=== PATIENT | female | born 1965 | race Caucasian/White ===

== ENCOUNTER 2019-02-19 13:03 | Emergency (ER) | payer OTHER, SELFPAY ==
[2019-02-19 13:05] VITALS: BP 139/84; PULSE 71; RESP 16; TEMP 36.9; O2SAT 100; BMI 20.7
--- NOTE | 2019-02-19 13:18 | PC.NURSE ---
sxs reported to dr dickey./
--- NOTE | 2019-02-19 13:31 | ED.NEUROSD ---
HPI - Neuro Symptoms/Deficit General Chief Complaint: Neuro Symptoms/Deficit Stated Complaint: eyes differently dialted,tingling face last night Time Seen by Provider: 02/19/19 13:13 Source: patient Mode of arrival: ambulatory Limitations: no limitations History of Present Illness HPI Narrative: Patient is a 53-year-old female who presents at the request of her family. Family states that her eyes were dilated differently. Son states that 1 I was extremely dilated last night and the other 1 was pinpoint. thought this morning that her left eye was a little droopy. She may have had some tingling on the left side of her face. She has no history of trauma. She has no focal deficits. No difficulty speaking no weakness or numbness or tingling. She denies any medical history. She states that she feels fine now and has no complaints.. On Anticoagulants: No Related Data Allergies Allergy/AdvReac Type Severity Reaction Status Date / Time No Known Drug Allergies Allergy Verified 02/19/19 13:14 Review of Systems Review of Systems GENERAL: Denies chills, fatigue, malaise, fever, sweats, travel HEENT: See HPI Denies sinus pain, ear pain, sore throat, difficulty swallowing, neck pain RESPIRATORY: Denies dyspnea, cough, wheezing, hemoptysis, sputum. CARDIOVASCULAR: Denies chest pain, palpitations, orthopnea, edema GASTROINTESTINAL: Denies nausea, vomiting, abdominal pain, diarrhea, constipation, melena. : Denies dysuria, frequency, incontinence, hematuria, urinary retention, flank pain. MUSCULOSKELETAL: Denies weakness, joint pain, or bony pain SKIN: No rash, no erythema, no pruritus NEUROLOGIC: Denies weakness, dizziness, headache, numbness, change in speech, confusion PSYCHIATRIC: No concerning psychosocial issues. 12 point review of systems is negative except for those stated above and HPI [facility] Medical History Patient denies significant medical history (Acute) Social History Smoking Status: Never smoker Social History Smoking Status: Never smoker Exam Initial Vital Signs Initial Vital Signs: Vital Signs Temperature 98.4 F 02/19/19 13:05 Pulse Rate 71 02/19/19 13:05 Respiratory Rate 16 02/19/19 13:05 Blood Pressure 139/84 02/19/19 13:05 Pulse Oximetry 100 02/19/19 13:05 GENERAL: Well-appearing, well-nourished and in no acute distress. HEENT: Head atraumatic,EOMI, pupils reactive, SUZETTE, face symmetric, moist mucous membranes CARDIOVASCULAR: Regular rate and rhythm without murmurs, rubs or gallops. RESPIRATORY: Breath sounds equal bilaterally, no wheezes rales or rhonchi. ABDOMEN: Soft, nontender. Normoactive bowel sounds all 4 quadrants. No guarding or rebound. : No CVA tenderness EXTREMITIES: Normal range of motion, no clubbing or edema. Neurovascularly intact NEUROLOGICAL: Alert and oriented x4.Normal gait and speech. Cranial nerves II through XII grossly intact. Good [id number], good [id number], strength equal bilaterally, no dysarthria or aphasia, sensation in tact to soft touch bilaterally, no visual changes, no facial droop SKIN: Warm, dry, no laceration, no petechiae, no rashes or lesions. Scores NIH Stroke Scale Level of Conciousness: Alert, keenly responsive Ask month/age: Answers both questions correctly. Open/close eyes, close hand: Performs both tasks correctly Best gaze horizontal: Normal Visual donald: No visual loss Facial palsy: Normal symetrical movement Left arm drift: No drift for full 10 sec Right arm drift: No drift for full 10 sec Left leg drift: No drift for full 10 sec Right leg drift: No drift for full 10 sec Limb ataxia: Absent Sensory on face/arms/legs: Normal, no sensory loss Best language: No aphasia, normal Dysarthria: Normal Extinction or inattention: No abnormality Total NIH Stroke scale score: 0 Course Vital Signs - 8 hr 02/19/19 13:05 02/19/19 13:36 Temperature 98.4 F Pulse Rate 71 Respiratory Rate 16 Blood Pressure 139/84 Blood Pressure [Left Arm] 146/82 H Pulse Oximetry 100 MDM - Neuro Symptoms/Deficit Lab Data Point of Care Testing Glucose POC 86 Discharge Plan Departure Patient Disposition: Home Clinical Impression: Feared complaint without diagnosis Discharge Date/Time: 02/19/19 13:45 Interventions: ED Discharge Assessment Last Done: 02/19/19 13:44 Instructions: DI for Stroke-Ischemic, DI for Stroke-Intracerebral Hemorrhage Activity Restrictions/Additional Instructions: *You have been diagnosed with no diagnosis *What to do: At this time no signs or symptoms consistent stroke. *Continue to take medications as directed *Follow up with your primary care provider in 2-3 days *Return to ER if you should have weakness facial drooping blurry vision blackening of vision difficulty with speech or any new, worsening or concerning symptoms
[2019-02-19 13:36] VITALS: BP 146/82
--- NOTE | 2019-02-19 13:36 | ED_ITS ---
HPI - Neuro Symptoms/Deficit General Chief Complaint: Neuro Symptoms/Deficit Stated Complaint: eyes differently dialted,tingling face last night Time Seen by Provider: 02/19/19 13:13 Source: patient Mode of arrival: ambulatory Limitations: no limitations History of Present Illness HPI Narrative: Patient is a 53-year-old female who presents at the request of her family. Family states that her eyes were dilated differently. Son states that 1 I was extremely dilated last night and the other 1 was pinpoint. thought this morning that her left eye was a little droopy. She may have had some tingling on the left side of her face. She has no history of trauma. She has no focal deficits. No difficulty speaking no weakness or numbness or tingling. She denies any medical history. She states that she feels fine now and has no complaints.. On Anticoagulants: No Related Data Allergies Allergy/AdvReac Type Severity Reaction Status Date / Time No Known Drug Allergies Allergy Verified 02/19/19 13:14 Review of Systems Review of Systems GENERAL: Denies chills, fatigue, malaise, fever, sweats, travel HEENT: See HPI Denies sinus pain, ear pain, sore throat, difficulty swallowing, neck pain RESPIRATORY: Denies dyspnea, cough, wheezing, hemoptysis, sputum. CARDIOVASCULAR: Denies chest pain, palpitations, orthopnea, edema GASTROINTESTINAL: Denies nausea, vomiting, abdominal pain, diarrhea, constipation, melena. : Denies dysuria, frequency, incontinence, hematuria, urinary retention, flank pain. MUSCULOSKELETAL: Denies weakness, joint pain, or bony pain SKIN: No rash, no erythema, no pruritus NEUROLOGIC: Denies weakness, dizziness, headache, numbness, change in speech, confusion PSYCHIATRIC: No concerning psychosocial issues. 12 point review of systems is negative except for those stated above and HPI [facility] Medical History Patient denies significant medical history (Acute) Social History Smoking Status: Never smoker Social History Smoking Status: Never smoker Exam Initial Vital Signs Initial Vital Signs: Vital Signs Temperature 98.4 F 02/19/19 13:05 Pulse Rate 71 02/19/19 13:05 Respiratory Rate 16 02/19/19 13:05 Blood Pressure 139/84 02/19/19 13:05 Pulse Oximetry 100 02/19/19 13:05 GENERAL: Well-appearing, well-nourished and in no acute distress. HEENT: Head atraumatic,EOMI, pupils reactive, SUZETTE, face symmetric, moist mucous membranes CARDIOVASCULAR: Regular rate and rhythm without murmurs, rubs or gallops. RESPIRATORY: Breath sounds equal bilaterally, no wheezes rales or rhonchi. ABDOMEN: Soft, nontender. Normoactive bowel sounds all 4 quadrants. No gua rding or rebound. : No CVA tenderness EXTREMITIES: Normal range of motion, no clubbing or edema. Neurovascularly intact NEUROLOGICAL: Alert and oriented x4.Normal gait and speech. Cranial nerves II through XII grossly intact. Good [id number], good [id number], strength equal bilaterally, no dysarthria or aphasia, sensation in tact to soft touch bilaterally, no visual changes, no facial droop SKIN: Warm, dry, no laceration, no petechiae, no rashes or lesions. Scores NIH Stroke Scale Level of Conciousness: Alert, keenly responsive Ask month/age: Answers both questions correctly. Open/close eyes, close hand: Performs both tasks correctly Best gaze horizontal: Normal Visual donald: No visual loss Facial palsy: Normal symetrical movement Left arm drift: No drift for full 10 sec Right arm drift: No drift for full 10 sec Left leg drift: No drift for full 10 sec Right leg drift: No drift for full 10 sec Limb ataxia: Absent Sensory on face/arms/legs: Normal, no sensory loss Best language: No aphasia, normal Dysarthria: Normal Extinction or inattention: No abnormality Total NIH Stroke scale score: 0 Course Vital Signs - 8 hr 02/19/19 13:05 02/19/19 13:36 Temperature 98.4 F Pulse Rate 71 Respiratory Rate 16 Blood Pressure 139/84 Blood Pressure [Left Arm] 146/82 H Pulse Oximetry 100 MDM - Neuro Symptoms/Deficit Lab Data Point of Care Testing Glucose POC 86 Discharge Plan Departure Patient Disposition: Home Clinical Impression: Feared complaint without diagnosis Discharge Date/Time: 02/19/19 13:45 Interventions: ED Discharge Assessment Last Done: 02/19/19 13:44 Instructions: DI for Stroke-Ischemic, DI for Stroke-Intracerebral Hemorrhage Activity Restrictions/Additional Instructions: *You have been diagnosed with no diagnosis *What to do: At this time no signs or symptoms consistent stroke. *Continue to take medications as directed *Follow up with your primary care provider in 2-3 days *Return to ER if you should have weakness facial drooping blurry vision blackening of vision difficulty with speech or any new, worsening or concerning symptoms
== END 2019-02-19 13:45 | disposition home or self-care (01) ==
PROVIDERS: Emergency Provider Emergency Medicine
DX: R20.2 Paresthesia of skin (principal); Z71.1 Person with feared health complaint in whom no diagnosis is made
CPT/HCPCS: 82962; 99282

== ENCOUNTER → 2022-09-07 09:13 | Outpatient (CLI) | payer OTHER, SELFPAY ==
--- NOTE | 2022-09-07 | DI.MG.S_ITS ---
BILATERAL DIGITAL SCREENING MAMMOGRAM 3D/2D WITH CAD: 09/07/2022 CLINICAL: Routine screening. Personal history of right breast cancer. Comparison is made to exams dated: 08/24/2021 mammogram, 03/14/2020 mammogram, and 07/16/2018 mammogram - Outside facility. Both breasts are heterogeneously dense, which may obscure small masses (category c / 51-75% glandular tissue). Current study was also evaluated with a Computer Aided Detection (CAD) system. There are benign post operative findings in the right breast. No significant masses, calcifications, or other findings are seen in either breast. There has been no significant interval change. IMPRESSION: BENIGN There is no mammographic evidence of malignancy. A 1 year screening mammogram is recommended. This exam was interpreted at Station ID: [id number]. NOTE: For mammograms, a report in lay terms will be sent to the patient. Approximately 15% of breast malignancies will not be visualized mammographically. In the management of a palpable breast mass, a negative mammogram must not discourage biopsy of a clinically suspicious lesion. Electronically Signed By: Eleazar barger/haja:09/07/2022 10:40:37 letter sent: Normal Exam ACR BI-RADS Category 2: Benign Finding(s) 3342F
== END ==
PROVIDERS: PCP Family Medicine; Referring Provider Radiology Therapeutic Radiology; Visit Provider Radiology Therapeutic Radiology
DX: Z12.31 Encounter for screening mammogram for malignant neoplasm of breast (principal); Z85.3 Personal history of malignant neoplasm of breast
CPT/HCPCS: 77063; 77067

== ENCOUNTER 2023-08-19 15:14 | Emergency (ER) | payer OTHER, SELFPAY ==
[2023-08-19 15:28] VITALS: BP 122/71; PULSE 67; RESP 18; TEMP 36.6; O2SAT 96; BMI 23.4
--- NOTE | 2023-08-19 15:32 | DI.RAD.S_ITS ---
PROCEDURE: XR HAND RT MIN 3V INDICATIONS: puncture with scissors TECHNIQUE: 3 views of the hand(s) acquired. COMPARISON: None. FINDINGS: Bones: No fractures or dislocations. Carpal bones are normally aligned. No suspicious bony lesions. Age-appropriate bony degenerative changes are seen. Soft tissues: No suspicious soft tissue calcifications. No radiopaque foreign bodies are seen. IMPRESSION: No acute bony abnormality. No radiopaque foreign bodies are seen. Dictated by: Pankaj Rajan M.D. on 08/19/2023 at 14:44 Approved by: Pankaj Rajan M.D. on 08/19/2023 at 14:45
[2023-08-19 16:54] VITALS: BP 112/65; PULSE 67; RESP 18
--- NOTE | 2023-08-19 17:55 | PC.NURSE ---
Pt states unsure of last tetanus shot. Bleeding controlled. Wound is washed with warm, soapy antibacterial soap in the ER.
[2023-08-19 17:57] VITALS: BP 113/62; PULSE 76; RESP 18; O2SAT 98
[2023-08-19] MEDS: TET,DIPH,PERTUSS(ACELL),VAC/PF 0.5 ML SYRINGE IM (18:40)
--- NOTE | 2023-08-19 18:51 | PC.NURSE ---
Wound was washed with soapy water before provider administered sutures. Pt tolerated well.
--- NOTE | 2023-08-20 11:30 | ED_ITS ---
HPI - Wound/Laceration <Berkley Velasquez PA-C - Last Filed: 08/20/23 12:42> General Chief Complaint: Wound/Laceration Stated Complaint: punture wound rt hand Time Seen by Provider: 08/19/23 17:25 Source: patient Mode of arrival: Ambulatory History of Present Illness HPI narrative: 57-year-old female presents to the ED status post a hand injury sustained just prior to arrival. Patient was working in the [employer] today, when she accidentally injured her right palm on a pair of open garden sarah. Patient denies numbness, tingling, weakness. Patient endorses full range of motion. Patient endorses pain at the site of the wound. Bleeding was controlled with pressure. Related Data Allergies Allergy/AdvReac Type Severity Reaction Status Date / Time No Known Drug Allergies Allergy Verified 08/19/23 15:28 Review of Systems <Berkley Velasquez PA-C - Last Filed: 08/20/23 12:42> Constitutional Constitutional: Denies chills, Denies fatigue, Denies fever(s), Denies frequent falls, Denies lethargy and Denies weakness Eyes Eyes: Denies change in vision, Denies eye discharge, Denies irritation and Denies loss of vision ENT Ears, Nose, Mouth, and Throat: Denies change in voice, Denies dizziness, Denies neck pain, Denies sore throat and Denies throat swelling Cardiovascular Cardiovascular: Denies chest pain, Denies irregular heart rhythm, Denies lightheadedness, Denies palpitations, Denies dyspnea, Denies dyspnea on exertion and Denies orthopnea Respiratory Respiratory: Denies cough, Denies dyspnea, Denies dyspnea on exertion and Denies wheezing Gastrointestinal Gastrointestinal: Denies abdominal pain, Denies change in bowel habits, Denies diarrhea, Denies nausea and Denies vomiting Musculoskeletal Musculoskeletal: Denies neck pain and Denies numbness Integumentary/Breasts Skin/Breast: Denies pruritus, Denies erythema, Denies rash and Reports wounds Neurologic Neurologic: Denies behavioral changes, Denies confusion, Denies dizziness, Denies frequent falls, Denies loss of vision, Denies numbness and Denies weakness Psychiatric Psychiatric: Denies anxiety, Denies behavioral changes, Denies confusion, Denies depression, Denies homicidal ideation and Denies suicidal ideation Endocrine Endocrine: Denies fatigue, Denies flushing and Denies palpitations Hematologic/Lymphatic Hematologic/Lymphatic: Denies easy bruising Allergic/Immunologic Allergic/Immunologic: Denies urticaria, Denies throat swelling and Denies wheezing Patient History <Berkley Velasquez PA-C - Last Filed: 08/20/23 12:42> Medical History Patient denies significant medical history Social History Smoking Status: Never smoker Smoking Status: Never smoker Substance Use Type: does not use Exam <Berkley Velasquez PA-C - Last Filed: 08/20/23 12:42> Narrative Exam Narrative: Const General:?cooperative, healthy appearing and comfortable HENMT Head:?normal to inspection Ears:?hearing grossly normal bilaterally Nose:?external nose normal Face and sinus:?normal facial exam and sinuses nontender Mouth:?oral mucosae normal Throat:?posterior oropharynx normal Eyes General:?appearance normal, both eyes and all related structures Neck Neck:?normal visual inspection and no lymphadenopathy noted Resp Effort & Inspection:?normal respiratory effort Auscultation:?clear to auscultation bilaterally Cardio Rate:?regular rate Rhythm:?regular rhythm Integumentary There is a small 1 cm linear laceration to the base of the right hypothenar eminence. Bleeding is controlled with pressure. No deeper structures visualized on exam. Strength and sensation is intact. There is full range of motion. Patient is neurovascularly intact. Neuro General:?patient alert, patient awake and patient oriented x3 Initial Vital Signs Initial Vital Signs: Vital Signs Temperature 97.9 F 08/19/23 15:28 Pulse Rate 67 08/19/23 15:28 Respiratory Rate 18 08/19/23 15:28 Blood Pressure 122/71 08/19/23 15:28 Pulse Oximetry 96 08/19/23 15:28 Oxygen Delivery Method Room Air 08/19/23 15:28 <Radha Dias DO - Last Filed: 08/20/23 13:31> Initial Vital Signs Initial Vital Signs: Vital Signs Temperature 97.9 F 08/19/23 15:28 Pulse Rate 67 08/19/23 15:28 Respiratory Rate 18 08/19/23 15:28 Blood Pressure 122/71 08/19/23 15:28 Pulse Oximetry 96 08/19/23 15:28 Oxygen Delivery Method Room Air 08/19/23 15:28 Procedures <MAGALI Rivers Last Filed: 08/20/23 12:42> Laceration Repair Laceration 1: Site: hand Side (If applicable): right Size (cm): 1 Description: linear Depth: simple, single layer Local Anesthetic: lidocaine 1% Amount of anesthesia used (mL): 1 Pre-repair: wound explored, irrigated extensively and deep structures intact Skin layer closed with: nylon Skin layer suture size: 5-0 Number of sutures: 2 Technique: simple, interrupted Course <MAGALI Rivers Last Filed: 08/20/23 12:42> Orders Ordered: Discontinued Medications Diphtheria/Tetanus/Acell Pertussis (Tet,Diph,Pertuss(Acell),Vac/Pf 0.5 Ml Syringe) 0.5 ml IM .ONCE ONE Stop: 08/19/23 18:37 Last Admin: 08/19/23 18:40 Dose: 0.5 ml Documented By: SPF Tetanus/Diphtheria Toxoids (Tetanus Diphtheria Toxoids 0.5 Ml Vial) 0.5 ml IM .ONCE ONE Stop: 08/19/23 18:33 <Radha Dias DO - Last Filed: 08/20/23 13:31> Orders Ordered: Discontinued Medications Diphtheria/Tetanus/Acell Pertussis (Tet,Diph,Pertuss(Acell),Vac/Pf 0.5 Ml Syringe) 0.5 ml IM .ONCE ONE Stop: 08/19/23 18:37 Last Admin: 08/19/23 18:40 Dose: 0.5 ml Documented By: SPF Tetanus/Diphtheria Toxoids (Tetanus Diphtheria Toxoids 0.5 Ml Vial) 0.5 ml IM .ONCE ONE Stop: 08/19/23 18:33 MDM - Wound/Laceration <MAGALI Rivers Last Filed: 08/20/23 12:42> MDM Narrative Medical decision making narrative: 57-year-old female presents to the ED status post a hand injury sustained just prior to arrival. Will obtain x-ray to rule out foreign object, frac ture/dislocation. X-ray without acute findings. Patient is neurovascularly intact. Laceration was repaired with 2 sutures. Sutures will need to be removed in 7-10 days. Signs of infection and wound care discussed with patient. ED return precautions discussed with patient. Patient verbalized understanding. Medical records reviewed: Yes Discharge Plan Departure Patient Disposition: Home Clinical Impression: Laceration Instructions: DI for Laceration Repair Activity Restrictions/Additional Instructions: You were evaluated in the ED today for a hand injury. The x-ray was normal. Your laceration was sutured with 2 sutures. The sutures will need to be removed in 7-10 days. You may see your PCP for suture removal or return to the ED. please watch for signs of infection including worsening redness, pain, swelling, warmth, discharge. Return to the ED if you note any signs of infection. You may take Tylenol or ibuprofen for pain. Referrals: Emani Rueda DO [Primary Care Provider] - Stand Alone Forms: Patient Portal/API ED Sign-out <Radha Dias DO - Last Filed: 08/20/23 13:31> Cosign ED Attending Lauren Attestation: I was available for consultation.
== END 2023-08-19 18:52 | disposition home or self-care (01) ==
PROVIDERS: Emergency Provider Student in an Organized Health Care Education/Training Program; PCP Family Medicine
DX: S61.411A Laceration without foreign body of right hand, initial encounter (principal); W27.1XXA Contact with garden tool, initial encounter; Z23 Encounter for immunization
CPT/HCPCS: 12001; 73130; 90471; 99283; 90715

== ENCOUNTER → 2023-09-09 08:08 | Outpatient (CLI) | payer OTHER, SELFPAY ==
--- NOTE | 2023-09-09 08:09 | DI.MG.S_ITS ---
BILATERAL DIGITAL SCREENING MAMMOGRAM 3D/2D WITH CAD: 09/09/2023 CLINICAL: Routine screening. Breast cancer. Comparison is made to exams dated: 09/07/2022 mammogram - [facility], 08/24/2021 mammogram, and 03/14/2020 mammogram - Outside facility. Both breasts are heterogeneously dense, which may obscure small masses (category c / 51-75% glandular tissue). Current study was also evaluated with a Computer Aided Detection (CAD) system. The right breast has post-operative findings. There are linear fine heterogeneous calcifications in the right breast at 1 o'clock posterior depth. No other significant masses, calcifications, or other findings are seen in either breast. IMPRESSION: INCOMPLETE: NEEDS ADDITIONAL IMAGING EVALUATION The linear fine heterogeneous calcifications in the right breast are indeterminate. Diagnostic mammogram for additional views to include mediolateral and spot magnification views is recommended. This exam was interpreted at Station ID: [id number]. NOTE: For mammograms, a report in lay terms will be sent to the patient. Approximately 15% of breast malignancies will not be visualized mammographically. In the management of a palpable breast mass, a negative mammogram must not discourage biopsy of a clinically suspicious lesion. Electronically Signed By: Isaac Collins M.D. aty/:09/09/2023 18:43:26 letter sent: Additional Imaging Needed ACR BI-RADS Category 0: Incomplete 3340F
== END ==
LOC: MAMMO 08:08
PROVIDERS: PCP Family Medicine; Referring Provider Family Medicine; Visit Provider Family Medicine
DX: Z12.31 Encounter for screening mammogram for malignant neoplasm of breast (principal); Z85.3 Personal history of malignant neoplasm of breast; R92.333 Mammographic heterogeneous density, bilateral breasts
CPT/HCPCS: 77063; 77067

== ENCOUNTER → 2023-10-14 10:01 | Outpatient (CLI) | payer OTHER, SELFPAY ==
--- NOTE | 2023-10-14 | DI.MG.S_ITS ---
UNILATERAL RIGHT DIGITAL DIAGNOSTIC MAMMOGRAM 3D/2D WITH ADDITIONAL VIEWS: 10/14/2023 CLINICAL: Additional evaluation requested from prior study. Comparison is made to exams dated: 09/09/2023 mammogram, 09/07/2022 mammogram - [facility], and 08/24/2021 mammogram - Outside facility. The right breast is heterogeneously dense, which may obscure small masses (category c / 51-75% glandular tissue). The right breast has post-operative findings. There are 0.9 cm x 0.6 cm linear fine and heterogeneous calcifications in the right breast at 1 o'clock posterior depth. These are increased in number of calcifications. No other significant masses or calcifications are seen in the breast. IMPRESSION: SUSPICIOUS OF MALIGNANCY The linear fine and heterogeneous calcifications in the right breast are at a moderate suspicion for malignancy. A stereotactic biopsy is recommended. Exam findings were discussed with the patient. This exam was interpreted at Station ID: [id number]. NOTE: For mammograms, a report in lay terms will be sent to the patient. Approximately 15% of breast malignancies will not be visualized mammographically. In the management of a palpable breast mass, a negative mammogram must not discourage biopsy of a clinically suspicious lesion. Electronically Signed By: Blas Magaña M.D. slc/:10/14/2023 11:13:29 letter sent: Biopsy Required ACR BI-RADS Category 4b: Suspicious abnormality - intermediate suspicion of malignancy 3344F
== END ==
LOC: MAMMO 10:01
PROVIDERS: PCP Family Medicine; Referring Provider Family Medicine; Visit Provider Family Medicine
DX: R92.8 Other abnormal and inconclusive findings on diagnostic imaging of breast (principal); R92.333 Mammographic heterogeneous density, bilateral breasts
CPT/HCPCS: 77065; G0279

== ENCOUNTER → 2023-11-05 12:36 | Outpatient (CLI) | payer OTHER, SELFPAY ==
--- NOTE | 2023-11-05 | DI.MRI.S_ITS ---
BREAST MRI OF BOTH BREASTS- POST LUMPECTOMY: 11/05/2023 CLINICAL: Right breast Cancer. Comparison is made to exams dated: 10/23/2023 stereotactic biopsy - [facility], 10/14/2023 mammogram, 09/09/2023 mammogram, and 09/07/2022 mammogram - [facility]. 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 Precontrast axial STIR and 3D FLASH without fat saturation sequences were obtained. Both before and after bolus injection of contrast, sequential 1-minute axial 3D FLASH with fat saturation sequences for 3 time points, with subtraction images and maximum intensity projections (MIP's) generated. Delayed sagittal FLASH images with fat saturation were also obtained. Computer-aided detection, including computer algorithm analysis of MRI image data for lesion detection and characterization, pharmacokinetic analysis, with further physician review for interpretation, was performed. FINDINGS: Image quality: Excellent. There is minimal background parenchymal enhancement. Heterogeneous fibroglandular elements are seen in both breasts. Right breast: Peripherally enhancing biopsy cavity is seen in the right breast 1 o'clock position posterior depth. The cavity and surrounding edema and enhancement measure approximately 2.2 x 1.8 x 4.8 cm (66/7 and 69/18). Enhancement may represent post-biopsy edema and/or malignant involvement. The cavity is elongated in the craniocaudal dimension related to the biopsy approach. Kinetic curve assement demonstrates rapid early enhancement and progressive delayed enhancement. No solid mass-like enhancement is seen. Benign postsurgical changes are seen at the upper outer quadrant of the right breast posterior depth. No additional suspicious mass or abnormal non-mass enhancement in the right breast. No significant axillary or internal mammary lymphadenopathy. Left breast: No suspicious mass or abnormal non-mass enhancement. No significant axillary or internal mammary lymphadenopathy. Miscellaneous: Included portions of the anterior chest and upper abdomen demonstrate no significant abnormality. IMPRESSION: KNOWN BIOPSY PROVEN MALIGNANCY Post-biopsy changes are seen in the right breast 1 o'clock position corresponding to the recent biopsy with pathologic results demonstrating ductal carcinoma in situ. Edema and enhancement are seen surrounding the biopsy cavity without solid masslike enhancement. No other suspicious enhancement in the right breast. No significant axillary or internal mammary lymphadenopathy. BIRADS 6: Known biopsy proven malignancy. This exam was interpreted at Station ID: [id number]. Electronically Signed By: Eleazar Figueroa M.D. ar/:11/06/2023 09:34:05 ACR BI-RADS Category 6: Known biopsy proven malignancy [id number]
== END ==
PROVIDERS: PCP Family Medicine; Referring Provider Family Medicine; Visit Provider Family Medicine
DX: D05.11 Intraductal carcinoma in situ of right breast (principal); R92.323 Mammographic fibroglandular density, bilateral breasts
CPT/HCPCS: 77049; A9579

== ENCOUNTER 2025-06-20 08:03 | Emergency (ER) | payer OTHER, SELFPAY ==
[2025-06-20 08:09] VITALS: BP 145/73; PULSE 73; O2SAT 98
[2025-06-20 08:10] VITALS: BP 145/73; PULSE 73; RESP 16; TEMP 36.6; O2SAT 99; BMI 24.5
--- NOTE | 2025-06-20 08:22 | ED_ITS ---
HPI - Abdominal Pain General Chief Complaint: Abdominal Pain Stated Complaint: Stomach pain/faint and clammy/blood in urine Time Seen by Provider: 06/20/25 08:10 History of Present Illness HPI narrative: Patient is a healthy 59-year-old female presenting today with left lower quadrant pain. Reports she does not typically have any problems met this morning woke up with a dull ache. She is passing gas without any problem. She has also noticed that her urine is dark as well. She denies any painful frequency. She has no back pain no nausea no vomiting no fever. Related Data Allergies Allergy/AdvReac Type Severity Reaction Status Date / Time No Known Drug Allergies Allergy Verified 06/20/25 08:20 Patient History Medical History (Updated 06/20/25 @ 09:57 by Radha Dias DO) Patient denies significant medical history Social History Smoking Status: Never smoker Exam Initial Vital Signs Initial Vital Signs: Vital Signs Pulse Rate 73 06/20/25 08:09 Blood Pressure 145/73 H 06/20/25 08:09 Pulse Oximetry 98 06/20/25 08:09 GENERAL: Alert very well-appearing 59-year-old female and in no acute distress. HEENT: Head atraumatic,EOMI, pupils reactive, face symmetric, moist mucous membranes CARDIOVASCULAR: Regular rate and rhythm without murmurs, rubs or gallops. RESPIRATORY: Breath sounds equal bilaterally, no wheezes rales or rhonchi. ABDOMEN: Soft minimal left lower quadrant pain no guarding no rebound no peritoneal signs : No CVA tenderness EXTREMITIES: Normal range of motion, no clubbing or edema. Neurovascularly intact NEUROLOGICAL: Alert and oriented x4.Normal gait and speech. Cranial nerves II through XII grossly intact. SKIN: Warm, dry, no laceration, no petechiae, no rashes or lesions. Course Orders Ordered: Discontinued Medications Sodium Chloride (Normal Saline 0.9%) 1,000 mls @ 1,000 mls/hr IV BOLUS ONE Stop: 06/20/25 10:02 Last Admin: 06/20/25 09:08 Dose: 1,000 mls/hr Documented By: ANJUM Vital Signs Vital signs: Vital Signs - 8 hr 06/20/25 08:09 06/20/25 08:09 06/20/25 08:10 Temperature 97.9 F Pulse Rate 73 73 Respiratory Rate 16 Blood Pressure 145/73 H 145/73 H Pulse Oximetry 98 99 Oxygen Delivery Method Room Air 06/20/25 09:00 06/20/25 09:14 06/20/25 09:14 Temperature Pulse Rate 81 64 Respiratory Rate Blood Pressure 131/78 Pulse Oximetry 98 Oxygen Delivery Method 06/20/25 09:30 06/20/25 09:34 06/20/25 09:34 Temperature Pulse Rate 57 L 67 Respiratory Rate Blood Pressure 123/64 Pulse Oximetry 98 97 Oxygen Delivery Method MDM - Abdominal Pain Lab Data 06/20/25 08:44 06/20/25 08:44 Labs: Lab Results 06/20/25 06/20/25 Range/Units 08:16 08:44 WBC 4.0 L (4.5-11.0) X10^3/uL RBC 4.11 (4.0-5.2) X10^6/uL Hgb 12.8 (12.0-16.0) g/dL Hct 37.8 (36-46) % MCV 92.1 (80-100) fL MCH 31.1 (26-34) PG MCHC 33.7 (30-36) % RDW 13.1 (11.6-14.8) % Plt Count 233 (150-400) X10^3/uL Neut % (Auto) 69.3 (50-75) % Lymph % (Auto) 19.9 L (25-40) % [place] % (Auto) 8.0 (3-14) % Eos % (Auto) 1.9 L (2-4) % Baso % (Auto) 0.9 (0-2) % Neut # (Auto) 2700 (6330-1595) /uL Lymph # (Auto) 800 L (1043-3606) /uL [place] # (Auto) 300 (0-900) /uL Eos # (Auto) 100 (0-450) /uL Baso # (Auto) 0 (0-100) /uL Sodium 137 (137-145) mmol/L Potassium 3.8 (3.4-5.1) mmol/L Chloride 104 (98-107) mmol/L Carbon Dioxide 24 (22-32) mmol/L BUN 21 H (7-17) mg/dL Creatinine 0.50 L (0.52-1.04) mg/dL Estimated GFR > 60 (>60) mL/min BUN/Creatinine Ratio 42.0 H (6-22) Glucose 94 (70-99) mg/dL Calcium 8.7 (8.4-10.2) mg/dL Total Bilirubin 0.5 (0.2-1.3) mg/dL AST 25 (14-36) IU/L ALT 16 (<35) IU/L Alkaline Phosphatase 72 (38-126) U/L Total Protein 7.6 (6.3-8.2) g/dL Albumin 4.6 (3.5-5.0) g/dL Globulin 3.0 (1.7-4.1) g/dL Albumin/Globulin Ratio 1.5 (1.0-2.8) Lipase 117 (23-300) U/L Ur Bilirubin Confirm Negative (Negative) Urine RBC 10-30/hpf H (0-5/HPF) Urine WBC 1-5/hpf (0-5/HPF) Ur Squamous Epith Cells 0-1 /hpf (0-5/HPF) Urine Bacteria Occasional (0-1) (None) Urine Yeast 5-10/hpf H (None) Ur Culture Indicated? Specimen cultured Vol Urine Centrifuged 10ml (spun) Ur Chlamydia DNA (PCR) Not detected N gonorrhoeae DNA (PCR) Not detected Point of care testing: Urine Dip Bedside Urine Glucose Negative Bedside Urine Bilirubin + 1 Bedside Urine Ketone - Negative Urine Specific [place] 1.030 Bedside Urine Occult Blood +++ Bedside Urine pH 5.5 Bedside Urine Protein + 30 Bedside Urine Urobilinogen - Negative Bedside Urine Nitrite - Negative Bedside Urine Leukocytes + [address] scan - abdomen/pelvis: Radiologist's Impression: PROCEDURE: CT ABDOMEN PELVIS W CON INDICATIONS: llq pain TECHNIQUE: After the administration of intravenous contrast, axial sections acquired from the lung bases to the pubic symphysis. Coronal and sagittal reformats were performed. For radiation dose reduction, the following was used: automated exposure control, adjustment of mA and/or kV according to patient size. COMPARISON: None. FINDINGS: Image quality: Diagnostic. Lower Chest: No significant findings. ABDOMEN: Liver: No solid mass. Gallbladder: No radiopaque gallstones or wall thickening. Biliary ducts: No biliary dilation. Pancreas: No ductal dilation. Spleen: Size is within normal limits. Adrenal Glands: No adrenal nodules. Kidneys and Ureters: No hydronephrosis. No solid mass. No complex renal cystic lesion which requires follow up. Bilateral renal cysts less than 1.5 cm. Nonobstructing subcentimeter left renal calculus. Stomach and Bowel: Normal colonic caliber, without significant wall thickening. Moderate fecal debris throughout the colon. Peritoneum: No abnormal intraperitoneal fluid. No free air. Ventral Wall: No significant ventral hernia. Abdominal Nodes: No retroperitoneal or mesenteric adenopathy by size criteria. Vessels: Aorta and inferior vena cava are normal in size. PELVIS: Pelvic Organs: Para uterine venous vasculature measures up to 6 mm diameter. Bladder: No bladder wall thickening, accounting for underdistention. Pelvic Nodes: No enlarged lymph nodes. Miscellaneous: No inguinal hernias are seen. Bones: Degenerative disc disease and arthropathy noted in lower lumbar spine. IMPRESSION: No acute CT findings in the abdomen and pelvis. Nonobstructive left renal calculus. No hydronephrosis. Incidental prominent para uterine venous vasculature could reflect pelvic congestion syndrome in the proper clinical setting Approved by: López Bella M.D. on 06/20/2025 at 8:30 MDM Narrative Medical decision making narrative: Patient healthy 59-year-old female presenting today with some mild left lower quadrant pain. Abdomen is soft no peritoneal signs. Blood work has been reviewed she has no leukocytosis no anemia no electrolyte abnormality no PRETTY bilirubin liver enzymes and lipase all within normal limits. Urinalysis does have RBCs yeast and bacteria Imaging has been reviewed possible pelvic congestion syndrome however no other acute findings Discussion with patient about test results. She reports that about 2 weeks ago she had vaginal swabs done by her primary care initially there was thought that she had a yeast infection. She reports that she took 1 dose of anti fungal medication and was told to wait 1 week before she took the other. However they called her with the results saying that she did not have a yeast infection so she never took the other dose. She does have some blood in her urine but she denies any vaginal pruritus or discharge. He denies any dysuria at this time as well. She has no evidence of severe infection no leukocytosis no evidence of sepsis. At this time we will hold off and wait for urine culture Discharge Plan Departure Patient Disposition: Home Clinical Impression: Hematuria Instructions: DI for Hematuria Activity Restrictions/Additional Instructions: *You have been diagnosed with hematuria *What to do: At this time we will hold off for antibiotics wait until your urine culture comes back. We should have a culture results for your urine in about 2-3 days. We will call you if it is positive *Continue to take medications as directed Okay to take use medication from provider *Follow up with your primary care provider in 2-3 days or call [phone] *Return to ER if you should have increasing pain nausea vomiting fever [or] any new, worsening or concerning symptoms Referrals: Emani Rueda, DO [Primary Care Provider, Medical] Stand Alone Forms: Patient Portal/API
[2025-06-20 08:30] LABS: Ictotest Urine Negative (Negative)
[2025-06-20 08:43] LABS: Culture Indicated Urine Specimen Cultured
[2025-06-20 09:00] VITALS: PULSE 81
[2025-06-20] MEDS: SODIUM CHLORIDE 0.9% 1,000 ML 1000 ML IV (09:08)
[2025-06-20 09:14] VITALS: BP 131/78; PULSE 64; O2SAT 98
[2025-06-20 09:22] LABS: Alanine Aminotransferase 16 IU/L (<35); Albumin 4.6 g/dL (3.5-5.0); Albumin Globulin Ratio 1.5 (1.0-2.8); Alkaline Phosphatase 72 U/L (38-126); Blood Urea Nitrogen 21 mg/dL (7-17); Calcium 8.7 mg/dL (8.4-10.2); Carbon Dioxide 24 mmol/L (22-32); Chloride 104 mmol/L (98-107); Estimated Glomerular Filt Rate > 60 mL/min (>60); Globulin 3.0 g/dL (1.7-4.1); Glucose 94 mg/dL (70-99); HEMOLYSIS < 15 (0-50); Lipase 117 U/L (23-300); Potassium 3.8 mmol/L (3.4-5.1); Sodium 137 mmol/L (137-145); Total Protein 7.6 g/dL (6.3-8.2)
[2025-06-20 09:30] VITALS: PULSE 57; O2SAT 98
[2025-06-20 09:34] VITALS: BP 123/64; PULSE 67; O2SAT 97
[2025-06-20 09:42] LABS: Add Manual Diff / Slide Review NO; Hematocrit 37.8 % (36-46); Hemoglobin 12.8 g/dL (12.0-16.0); Lymphocytes Absolute Auto 800 /uL (1100-4500); Mean Corpuscular HGB Conc 33.7 % (30-36); Mean Corpuscular Hemoglobin 31.1 PG (26-34); Mean Corpuscular Volume 92.1 fL (80-100); Platelet Count 233 X10^3/uL (150-400)
[2025-06-20 12:16] LABS: Urine N gonorrhoeae NOT DETECTED
[2025-06-20 12:21] LABS: Urine Chlamydia NOT DETECTED
== END 2025-06-20 10:05 | disposition home or self-care (01) ==
PROVIDERS: Emergency Provider Emergency Medicine; PCP Family Medicine
DX: R31.9 Hematuria, unspecified (principal); R10.32 Left lower quadrant pain
CPT/HCPCS: 36415; 74177; 80053; 81003; 81015; 83690; 85025; 87077; 87086; 87147; 87491; 87591; 99284; J7030; Q9967

== ENCOUNTER 2025-06-23 06:39 | Emergency (ER) | payer OTHER, SELFPAY ==
[2025-06-23] VITALS (11 sets, daily range): BP systolic 112–158; BP diastolic 64–77; PULSE 57–79; RESP 16; TEMP 36.3; O2SAT 95–100; BMI 24.2
--- NOTE | 2025-06-23 06:52 | EKG_ITS ---
[facility]
[2025-06-23] MEDS: ONDANSETRON 4 MG/2 ML INJ IV (07:10)
[2025-06-23 07:11] LABS: Appearance Urine UA CLEAR; Bilirubin Urine UA NEGATIVE (NEGATIVE); Color Urine UA YELLOW; Glucose Urine UA NEGATIVE (Negative); Ketones Urine UA TRACE (NEGATIVE); Leukocyte Esterase Urine UA NEGATIVE (NEGATIVE); Nitrite Urine UA NEGATIVE (Negative); Occult Blood Urine UA 3+ (Negative); Protein Urine UA TRACE (Negative); Specific Gravity Urine UA 1.025 (1.000-1.035); Urobilinogen Urine UA 0.2 E.U./dL (0.2)
[2025-06-23 07:13] LABS: pH Urine UA 6.0 (4.5-8.0)
[2025-06-23 07:14] LABS: Culture Indicated Urine Cult Not Indicated
[2025-06-23 07:21] LABS: Add Manual Diff / Slide Review NO; Hematocrit 37.6 % (36-46); Hemoglobin 12.8 g/dL (12.0-16.0); Lymphocytes Absolute Auto 500 /uL (1100-4500); Mean Corpuscular HGB Conc 34.1 % (30-36); Mean Corpuscular Hemoglobin 31.5 PG (26-34); Mean Corpuscular Volume 92.5 fL (80-100); Platelet Count 248 X10^3/uL (150-400)
--- NOTE | 2025-06-23 07:30 | ED_ITS ---
HPI - Abdominal Pain
--- NOTE | 2025-06-23 07:30 | ED.ABDPAIN ---
HPI - Abdominal Pain General Chief Complaint: Abdominal Pain Stated Complaint: Throwing up, lower left side pain Time Seen by Provider: 06/23/25 06:56 Source: patient, RN notes reviewed and old records reviewed Mode of arrival: Ambulatory Limitations: no limitations History of Present Illness HPI narrative: 59-year-old female history of skin disorder on topical hydrocortisone and letrozole presents with complaint of recurrent hematuria. Patient was seen on 06/20/2025 for similar symptoms she states pain reoccurred it is on the left anterior lower abdomen. She developed nausea and vomiting today which was new. She states pain was increased she did not have any flank pain with it. She denies any fevers but did feel little chilled. Denies chest pain or shortness of breath. She has noticed frequency, sense of incomplete emptying and dribbling. Patient states she has not had any vaginal bleeding, no spotting on her underwear it is only when she urinates. She states no vaginal discharge. No issues with bowel movements she had a normal bowel movement today. Patient states she did take a Midol earlier today and that seems to be helping. She states only medications are letrozole she has been using some topical hydrocortisone for changes on her hands. She had a meniscus surgery on her knee on 05/20/2025 remotely had a bilateral mastectomy. She reports an allergy to amoxicillin with hives 40 years ago has had other antibiotics. No tobacco, alcohol or recreational drugs. She can take a dose of Diflucan as she was told she had an yeast in her urine and took the 2nd dose recently. She has been contact with the physician who notes if her urine cultures are negative she needs to follow up with Urology for cystoscopy. Related Data Home Medications ?Medication ?Instructions ?Recorded ?Confirmed letrozole 2.5 mg tablet 2.5 mg PO DAILY 06/23/25 06/23/25 Previous Rx's ?Medication ?Instructions ?Recorded cephalexin 500 mg capsule 500 mg PO Q8H 5 days #15 caps 06/23/25 Allergies Allergy/AdvReac Type Severity Reaction Status Date / Time amoxicillin Allergy Mild Hives Verified 06/23/25 06:44 Review of Systems Review of Systems ROS Unobtainable: All systems reviewed & are unremarkable except as noted in HPI and below Patient History Medical History (Updated 06/23/25 @ 10:20 by Marcelle Mehta DO) Patient denies significant medical history Social History Smoking Status: Never smoker Smoking Status: Never smoker Exam Narrative Exam Narrative: GENERAL: Alert and oriented x three, female in mild distress HEENT: Head normocephalic, atraumatic, EOMI, pupils reactive, face symmetric, moist mucous membranes NECK: Supple, full range of motion CARDIOVASCULAR: Regular rate and rhythm without murmurs, rubs or gallops. RESPIRATORY: Breath sounds equal bilaterally, no wheezes rales or rhonchi. ABDOMEN: Soft, nontender. Nondistended. Normoactive bowel sounds all 4 quadrants. No guarding or rebound, rigidity, no mass : No CVA tenderness EXTREMITIES: Normal range of motion, no clubbing or edema. Neurovascularly intact NEUROLOGICAL: Cranial nerves II through XII grossly intact. Moving all extremities SKIN: Warm, dry, no petechiae, no rashes or lesions. Initial Vital Signs Initial Vital Signs: Vital Signs Temperature 97.3 F L 06/23/25 06:45 Pulse Rate 72 06/23/25 06:45 Respiratory Rate 16 06/23/25 06:45 Blood Pressure 158/72 H 06/23/25 06:45 Pulse Oximetry 98 06/23/25 06:45 Oxygen Delivery Method Room Air 06/23/25 06:45 Course Orders Ordered: ED Orders 06/23/25 06:52 EKG-12 Lead Stat 06/23/25 07:04 Urinalysis and Microscopic Stat Urine Culture Stat 06/23/25 07:12 Complete Blood Count AUTO DIFF Stat Comprehensive Metabolic Panel Stat Lipase Stat 06/23/25 07:53 US pelvic complete Stat US renal complete Stat Ondansetron HCl (Ondansetron 4 Mg/2 Ml Inj) 4 mg IV NOW PRN PRN Reason: Nausea And Vomiting Ondansetron HCl (Ondansetron 4 Mg Odt) 4 mg PO NOW PRN PRN Reason: Nausea And Vomiting Discontinued Medications Ondansetron HCl (Ondansetron 4 Mg/2 Ml Inj) 4 mg IV NOW ONE Stop: 06/23/25 06:57 Last Admin: 06/23/25 07:10 Dose: 4 mg Documented By: AB Vital Signs Vital signs: Vital Signs - 8 hr 06/23/25 06:45 06/23/25 07:12 06/23/25 07:14 Temperature 97.3 F L Pulse Rate 72 65 61 Respiratory Rate 16 Blood Pressure 158/72 H Pulse Oximetry 98 100 97 Oxygen Delivery Method Room Air 06/23/25 07:14 06/23/25 07:30 06/23/25 07:30 Temperature Pulse Rate 58 L Respiratory Rate Blood Pressure 113/74 115/64 Pulse Oximetry 95 Oxygen Delivery Method 06/23/25 08:00 06/23/25 08:00 06/23/25 08:30 Temperature Pulse Rate 61 Respiratory Rate Blood Pressure 117/64 126/64 Pulse Oximetry 97 Oxygen Delivery Method 06/23/25 08:30 06/23/25 09:00 06/23/25 09:00 Temperature Pulse Rate 57 L 60 Respiratory Rate Blood Pressure 120/68 Pulse Oximetry 98 98 Oxygen Delivery Method 06/23/25 09:30 06/23/25 09:30 06/23/25 10:00 Temperature Pulse Rate 59 L 63 Respiratory Rate Blood Pressure 112/68 Pulse Oximetry 97 98 Oxygen Delivery Method 06/23/25 10:04 06/23/25 10:04 06/23/25 10:30 Temperature Pulse Rate 79 Respiratory Rate Blood Pressure 139/67 126/77 Pulse Oximetry 97 Oxygen Delivery Method 06/23/25 10:30 06/23/25 10:35 Temperature Pulse Rate 70 Respiratory Rate Blood Pressure Pulse Oximetry 96 Oxygen Delivery Method Room Air MDM - Abdominal Pain Lab Data 06/23/25 07:12 06/23/25 07:12 Labs: Lab Results 06/23/25 06/23/25 Range/Units 07:04 07:12 WBC 6.8 (4.5-11.0) X10^3/uL RBC 4.07 (4.0-5.2) X10^6/uL Hgb 12.8 (12.0-16.0) g/dL Hct 37.6 (36-46) % MCV 92.5 (80-100) fL MCH 31.5 (26-34) PG MCHC 34.1 (30-36) % RDW 12.9 (11.6-14.8) % Plt Count 248 (150-400) X10^3/uL Neut % (Auto) 87.8 H (50-75) % Lymph % (Auto) 7.4 L (25-40) % [place] % (Auto) 4.1 (3-14) % Eos % (Auto) 0.4 L (2-4) % Baso % (Auto) 0.3 (0-2) % Neut # (Auto) 6000 (3240-1264) /uL Lymph # (Auto) 500 L (1488-5945) /uL [place] # (Auto) 300 (0-900) /uL Eos # (Auto) 0 (0-450) /uL Baso # (Auto) 0 (0-100) /uL Sodium 138 (137-145) mmol/L Potassium 3.6 (3.4-5.1) mmol/L Chloride 104 (98-107) mmol/L Carbon Dioxide 26 (22-32) mmol/L BUN 20 H (7-17) mg/dL Creatinine 0.62 (0.52-1.04) mg/dL Estimated GFR > 60 (>60) mL/min BUN/Creatinine Ratio 32.3 H (6-22) Glucose 124 H (70-99) mg/dL Calcium 8.7 (8.4-10.2) mg/dL Total Bilirubin 0.7 (0.2-1.3) mg/dL AST 26 (14-36) IU/L ALT 15 (<35) IU/L Alkaline Phosphatase 81 (38-126) U/L Total Protein 7.7 (6.3-8.2) g/dL Albumin 4.7 (3.5-5.0) g/dL Globulin 3.0 (1.7-4.1) g/dL Albumin/Globulin Ratio 1.6 (1.0-2.8) Lipase 63 (23-300) U/L Urine Color Yellow Urine Appearance Clear Urine pH 6.0 (4.5-8.0) Ur Specific [place] 1.025 (1.000-1.035) Urine Protein Trace H (Negative) Urine Glucose (UA) Negative (Negative) g/dL Urine Ketones Trace H (NEGATIVE) Urine Occult Blood 3+ H (Negative) Urine Nitrate Negative (Negative) Urine Bilirubin Negative (NEGATIVE) Urine Urobilinogen 0.2 (0.2) E.U./dL Ur Leukocyte Esterase Negative (NEGATIVE) Urine RBC 5-10/hpf H (0-5/HPF) Urine WBC None seen (0-5/HPF) Ur Squamous Epith Cells None seen (0-5/HPF) Urine Bacteria None seen (None) Ur Culture Indicated? Cult not indicated Vol Urine Centrifuged Low vol <10ml unspun A ECG Data Attestation: I personally reviewed and interpreted this ECG as follows: Prior ECG tracings: not available for review Interpretation: Sinus rhythm rate of 61 OH 164 QRS of 94 QTC 434, no acute ST-elevation minimal voltage criteria for LVH. No prior for comparison. MDM Narrative Medical decision making narrative: White count and shows 6.8, hemoglobin of 12 platelets of 248, chemistries are overall appropriate BUN 20 creatinine is 0.62 glucose is 124 LFTs are negative. Urine shows trace protein and trace ketones 3+ blood, 5-10 RBCs no white cells no squamous no bacteria. EKG shows sinus rhythm rate of [address]-elevation minimal voltage criteria for LVH. Renal ultrasound kidneys are normal in size, there is a nonobstructing left renal stone no suspicious solid mass lesions. No hydronephrosis. Pelvic ultrasound probable ill-defined 1.6 cm uterine fibroid. A dilated left gonadal vein with the extensive reflex enlarged bilateral pelvic varicosities chloride him and I would on recent CT certain individuals finding experiences syndrome with chronic pelvic venous congestion however symptoms related or not, in a postmenopausal female recommend clinical correlation. Patient had urine culture on 06/20/2025 positive for strep agalactiae day son 10,[address] abdomen pelvis with contrast showed no acute findings, nonobstructive left renal calculus no hydro incidental prominent periuterine venous vasculature could reflect pelvis congestion syndrome and proper clinical setting. Patient is seen here on 06/20/2025 for hematuria. Patient had negative CT at that time accept for possible pelvic congestion syndrome. Culture does show less than 10,000 CFU strep agalactiae but was otherwise negative. Discussed with the patient we will obtain some additional imaging to make sure there was no hydro or other changes although her culture was very low we will treat with a an oral antibiotic and have her follow up for rechecked she may need to follow up for cystoscopy. Discharge Plan Departure Patient Disposition: Home Clinical Impression: Fibroid, Hematuria Instructions: Hematuria -- Child Activity Restrictions/Additional Instructions: Your workup today does show what is probably a 1.6 cm uterine fibroid, there was some dilation of the veins in the pelvic region that can be consistent with a pelvic venous congestion syndrome but this isn't uncommon finding in postmenopausal females he would recommend follow up with the agricultural sales representative if you are having persistent symptoms. Your urine did show signs of blood, no obvious infection but your culture from 3 days ago showed a small amount of bacteria please take an oral antibiotic until completed and follow up your repeat culture today with your primary care physician. Prescription sent to [facility] in [place]. Please return if you have new or worsening symptoms, fevers, rapidly worsening abdominal back or flank pain, persistent vomiting, lightheadedness or passing out or other new or concerning changes. Prescriptions: New cephalexin 500 mg capsule 500 mg PO Q8H 5 Days Qty: 15 0RF No Action letrozole 2.5 mg tablet 2.5 mg PO DAILY Referrals: Emani Rueda, [Primary Care Provider, Medical] Stand Alone Forms: Patient Portal/API
[2025-06-23 07:33] LABS: Alanine Aminotransferase 15 IU/L (<35); Albumin 4.7 g/dL (3.5-5.0); Albumin Globulin Ratio 1.6 (1.0-2.8); Alkaline Phosphatase 81 U/L (38-126); Blood Urea Nitrogen 20 mg/dL (7-17); Calcium 8.7 mg/dL (8.4-10.2); Carbon Dioxide 26 mmol/L (22-32); Chloride 104 mmol/L (98-107); Estimated Glomerular Filt Rate > 60 mL/min (>60); Globulin 3.0 g/dL (1.7-4.1); Glucose 124 mg/dL (70-99); HEMOLYSIS < 15 (0-50); Lipase 63 U/L (23-300); Potassium 3.6 mmol/L (3.4-5.1); Sodium 138 mmol/L (137-145); Total Protein 7.7 g/dL (6.3-8.2)
--- NOTE | 2025-06-23 07:53 | DI.US.S_ITS ---
PROCEDURE: US PELVIC COMPLETE
--- NOTE | 2025-06-23 07:53 | DI.US.S_ITS ---
PROCEDURE: US RENAL COMPLETE
== END 2025-06-23 10:36 | disposition home or self-care (01) ==
PROVIDERS: Emergency Medicine; Emergency Provider Emergency Medicine; PCP Family Medicine
DX: R31.9 Hematuria, unspecified (principal); D25.9 Leiomyoma of uterus, unspecified; R11.2 Nausea with vomiting, unspecified
CPT/HCPCS: 76770; 76830; 76856; 80053; 81001; 83690; 85025; 87086; 93005; 96374; 99283; 99284; J2405